=== PATIENT | male | born 1945 | race Hispanic/Latino ===

== ENCOUNTER 2017-12-04 05:04 | Observation (INO) | payer OTHER ==
[2017-12-01 14:01] LABS: BASOPHILS % 0.9 % (0.0-1.0); EOSINOPHILS # (AUTO) 0.1 (0.0-0.4); HEMATOCRIT 42.6 % (38.2-49.6); HEMOGLOBIN 14.1 g/dL (14.0-18.0); LYMPHOCYTES # (AUTO) 0.9 (1.0-3.2); LYMPHOCYTES % 19.2 % (18.0-39.1); MEAN CORPUSCULAR HEMOGLOBIN 30.5 pg (28-32); MEAN CORPUSCULAR HGB CONC 33.1 g/dL (31-35); MEAN CORPUSCULAR VOLUME 92.2 fL (81-99); MONOCYTES # (AUTO) 0.5 (0.2-0.8); MONOCYTES % 11.6 % (4.4-11.3); NEUTROPHILS % 65.1 % (38.7-80.0); PLATELET COUNT 164 x10e3/uL (140-360); RED BLOOD COUNT 4.62 x10e6/uL (4.3-5.7); RED CELL DISTRIBUTION WIDTH 12.8 % (11.7-14.4)
--- NOTE | 2017-12-01 14:26 | Diagnostic Imaging Report ---
EXAMINATION: CHEST 2 VIEWS INDICATION: Preop for right knee surgery COMPARISON: None FINDINGS: TUBES and LINES: None. LUNGS: Lungs are well inflated. Lungs are clear. There is no evidence of pneumonia or pulmonary edema. PLEURA: No pleural effusion or pneumothorax. HEART AND MEDIASTINUM: The cardiomediastinal silhouette is unremarkable. BONES AND SOFT TISSUES: No acute osseous lesion. Soft tissues are unremarkable. UPPER ABDOMEN: No free air under the diaphragm. IMPRESSION: No acute thoracic abnormality. Signed by: Dr. Shashank Arrieta M.D. on 12/01/2017 2:23 PM
[2017-12-01 14:28] LABS: ANION GAP 13.3 mmol/L (8-16); CALCIUM 9.2 mg/dL (8.4-10.2); CREATININE, SERUM 1.8 mg/dL (0.72-1.25); POTASSIUM 4.3 mmol/L (3.5-5.1)
[~2017-12-04] VITALS: Ht 172.7 cm; Wt 88.9 kg
[~2017-12-04 05:04] MED LIST: ATORVASTATIN CA20 MG PO; LISINOPRIL2.5 MG PO
[2017-12-04] MEDS ORDERED: DEXAMETHASONE SOD PHOS 10 MG/1 ML VIAL ONE (05:15)
[2017-12-04] MEDS ORDERED: CEFAZOLIN SOD 2 GM/D5W 50ML 50 ML IV ONE (05:15)
[2017-12-04] MEDS ORDERED: CELECOXIB 200 MG CAP ONE (05:15)
[2017-12-04] MEDS ORDERED: GABAPENTIN 300 MG CAP ONE (05:15)
[2017-12-04] MEDS ORDERED: ROPIVACAINE 246.25 MG, EPINEPHRINE HCL 1:1000 0.5 MG, CLONIDINE HCL 0.08 MG, KETOROLAC ... INJ ONE ×5 (06:00)
[2017-12-04] MEDS ORDERED: TRANEXAMIC ACID 1,000 MG/10 ML ML ONE (06:02)
[2017-12-04] MEDS ORDERED: MUPIROCIN 2% OINT 22 GM TUBE ONE (06:02)
[2017-12-04] MEDS ORDERED: BACITRACIN 50,000 UNIT VIAL ONE (06:03)
[2017-12-04] MEDS ORDERED: ONDANSETRON HCL INJ 2 MG/ML VIAL IV PRN (08:15)
[2017-12-04] MEDS ORDERED: ACETAMINOPHEN 650 MG SUPP PR PRN (08:15)
[2017-12-04] MEDS ORDERED: HYDROCODONE/APAP 7.5MG-325MG 1 EA TAB PO PRN (08:15)
[2017-12-04] MEDS ORDERED: DIPHENHYDRAMINE HCL INJ 50 MG/ML VIAL IM/IV PRN (08:15)
[2017-12-04] MEDS ORDERED: PROMETHAZINE HCL (IM) 25 MG/ML VIAL IM PRN (08:15)
[2017-12-04] MEDS ORDERED: KETOROLAC TROMETHAMINE 30 MG/ML VIAL IV PRN (08:15)
[2017-12-04] MEDS ORDERED: DOCUSATE SODIUM 100 MG CAP PO PRN (08:15)
[2017-12-04] MEDS ORDERED: HYDROCODONE/APAP 5MG-325MG TAB PO PRN (08:15)
[2017-12-04] MEDS: ASPIRIN 325 MG TAB PO SCH ×2 (09:00→18:00)
[2017-12-04] MEDS: CELECOXIB 200 MG CAP PO SCH ×2 (09:00→18:00)
[2017-12-04] MEDS ORDERED: CELECOXIB 100 MG CAP PO SCH (09:00)
--- NOTE | 2017-12-04 09:56 | Diagnostic Imaging Report ---
PROCEDURE: X-RAY RIGHT KNEE, ONE OR TWO VIEWS COMPARISON: None. INDICATIONS:POST OPERATIVE RIGHT KNEE SURGERY FINDINGS: See conclusion. CONCLUSION: Status post total right knee replacement with surrounding soft tissue swelling, air and fuentes consistent with recent surgery. No periprosthetic displaced fractures. Dictated by: Denis Oreilly M.D. on 12/04/2017 at 9:10 Electronically approved by: Denis Oreilly M.D. on 12/04/2017 at 9:10
[2017-12-04 12:01] VITALS: BP 120/66
[2017-12-04] MEDS: SODIUM CHLORIDE 0.9% 1000ML 1,000 ML IV SCH ×3 (12:55→22:49)
[2017-12-04] MEDS: ACETAMINOPHEN 1000 MG/100 ML IV SCH ×3 (12:55→23:59)
--- NOTE | 2017-12-04 13:04 | Operative Report ---
DATE OF PROCEDURE: December 04, 2017 DIET KITCHEN COOK: Duane Roy PA-C The patient was brought to the operating room for induction of anesthesia. Throughout this case, my PA's assistance was necessary for retraction of soft tissue and positioning of the extremity. This allows for efficient and technically successful execution of the operation and is considered medically necessary. PREOPERATIVE DIAGNOSIS: Osteoarthritis, right knee. POSTOPERATIVE DIAGNOSIS: Osteoarthritis, right knee. PROCEDURE: Right total knee arthroplasty. INDICATIONS: The patient is a 72-year-old gentleman who has end-stage arthritis of his right knee. He has failed conservative management and would like to proceed with a right total knee replacement. The risks and benefits have been discussed. He states he understands and wishes to proceed. DESCRIPTION OF PROCEDURE: The patient was brought to the operating room and placed under general anesthetic. He received prophylactic antibiotics, a regional block, and tranexamic acid in the holding area. His right lower extremity was prepped and draped in the sterile manner. A preoperative time out was performed. The extremity was exsanguinated and a proximal tourniquet was inflated to 300 mmHg. An anterior approach with a medial parapatellar arthrotomy was performed. Soft tissue releases were performed to bring the knee up into flexion with the patella everted. The cruciate ligaments, marginal osteophytes, and meniscal remnants were all removed. A [employer] posterior-stabilized knee system was used. An extramedullary cutting guide was used to resect the proximal tibia. The tibial baseplate was noted to be a size #7. The central fin punch was impacted and attention was directed towards the distal femur. An intramedullary cutting guide was used to resect the distal femur in 6 degrees of valgus and rotation referencing off of a combination of landmarks including [place]'s line, the epicondylar axis, and the posterior condyles. The femoral component was also a size #7. Anterior and posterior cuts were made. Trial reductions were performed. A 9-mm ultra congruent tibial insert provided appropriate soft tissue balancing in flexion and extension. The patella was resurfaced with a 35 mm x 9 mm patellar button. The thickness was checked before and after and was right at 24 mm. Patellar tracking was noted to be concentric. The trial implants were removed. The knee was thoroughly irrigated with a Pulsavac. A 100 mL premixed pericapsular VIRGILIO injection was placed into the surrounding soft tissue. The components were cemented into place using a single mix of PALACOS cement preloaded with antibiotics. Care was taken to remove all extravasated cement. The wound was further irrigated while the cement cured. The arthrotomy was closed with interrupted #1 Ethibond. The knee was put through flexion and extension to ensure a secure closure. The skin was closed with subcuticular Vicryl and fuentes. A sterile Aquacel bandage was applied. The patient was extubated and transported to the recovery room in stable condition. Blood loss was minimal. All needle and sponge counts were correct. Job#: [id number] ROSANNA
[2017-12-04 13:07] VITALS: BP 120/66
[2017-12-04] MEDS ORDERED: CEFAZOLIN SOD 1 GM/D5W 50ML 50 ML IV SCH (14:00)
[2017-12-04] MEDS: CEFAZOLIN SOD 1 GM VIAL IV SCH ×2 (14:47→22:49)
[2017-12-04] MEDS ORDERED: MIDAZOLAM HCL 2 MG/2 ML VIAL ONE (18:12)
[2017-12-04] MEDS ORDERED: FENTANYL CITRATE/PF 100MCG/2 ML INJ ONE (18:12)
[2017-12-04 18:13] VITALS: BP 117/60
[2017-12-04] MEDS ORDERED: ONDANSETRON HCL INJ 2 MG/ML VIAL ONE (18:25)
[2017-12-04] MEDS ORDERED: PROPOFOL IV EMULSION 10 MG/ML 20 ML VIAL ONE (18:25)
[2017-12-04] MEDS ORDERED: LIDOCAINE HCL 2% LOCAL INJ 5 ML SDV VIAL INJ ONE (18:25)
[2017-12-04] MEDS ORDERED: SEVOFLURANE INHAL SOLN 250 ML PEN BTL ONE (18:25)
[2017-12-04] MEDS ORDERED: ROPIVACAINE 0.5% 5 MG/ML 30 ML SDV ONE (19:26)
[2017-12-04] MEDS ORDERED: LIDOCAINE 2% /EPINEPHRINE 20 ML SDV INJ ONE (19:26)
[2017-12-04 20:00] VITALS: BP 106/59
[2017-12-04] MEDS ORDERED: ZOLPIDEM TARTRATE 5 MG TAB PO PRN (21:00)
[2017-12-04 22:09] VITALS: BP 106/59
[2017-12-05] VITALS: BP 89/54
[2017-12-05 04:00] VITALS: BP 106/55
[2017-12-05] MEDS: CEFAZOLIN SOD 1 GM VIAL IV SCH (05:33)
[2017-12-05] MEDS: ACETAMINOPHEN 1000 MG/100 ML IV SCH (05:33)
[2017-12-05 05:51] LABS: BASOPHILS % 0.1 % (0.0-1.0); EOSINOPHILS % 0.1 % (0.0-6.0); HEMATOCRIT 35.9 % (38.2-49.6); HEMOGLOBIN 11.8 g/dL (14.0-18.0); LYMPHOCYTES # (AUTO) 0.9 (1.0-3.2); LYMPHOCYTES % 9.4 % (18.0-39.1); MEAN CORPUSCULAR HEMOGLOBIN 30.3 pg (28-32); MEAN CORPUSCULAR HGB CONC 32.9 g/dL (31-35); MEAN CORPUSCULAR VOLUME 92.1 fL (81-99); MONOCYTES # (AUTO) 0.7 (0.2-0.8); MONOCYTES % 8.2 % (4.4-11.3); NEUTROPHILS # (AUTO) 7.4 (2.1-6.9); NEUTROPHILS % 81.9 % (38.7-80.0); PLATELET COUNT 135 x10e3/uL (140-360)
[2017-12-05 06:08] LABS: ANION GAP 9.9 mmol/L (8-16); BLOOD UREA NITROGEN 15 mg/dL (7-26); BUN/CREATININE RATIO 15 (6-25); CALCIUM 8.4 mg/dL (8.4-10.2); CARBON DIOXIDE 22 mmol/L (22-29); CHLORIDE 111 mmol/L (98-107); CREATININE, SERUM 1.01 mg/dL (0.72-1.25); EST GLOMERULAR FILTRATION RATE > 60 ML/MIN (60-); GLUCOSE 125 mg/dL (74-118); POTASSIUM 3.9 mmol/L (3.5-5.1); SODIUM 139 mmol/L (136-145)
[2017-12-05 07:05] VITALS: BP 101/50
[2017-12-05] MEDS ORDERED: ACETAMINOPHEN 1000 MG/100 ML IV PRN (08:15)
[2017-12-05 08:52] VITALS: BP 101/50
[2017-12-05] MEDS: ASPIRIN 325 MG TAB PO SCH (09:46)
[2017-12-05] MEDS: CELECOXIB 200 MG CAP PO SCH (09:46)
[2017-12-05] MEDS ORDERED: ASPIRIN325 MG PO (12:32)
[2017-12-05 13:31] VITALS: BP 115/56
== END 2017-12-05 14:20 | disposition home health service (06) ==
LOC: OR 05:04 → PACU V 08:12 → MED/SURG 11:42
PROVIDERS: ADMIT Specialist; ATTEND Specialist
DX: M17.11 Unilateral primary osteoarthritis, right knee (principal); E11.22 Type 2 diabetes mellitus with diabetic chronic kidney disease; N18.9 Chronic kidney disease, unspecified; E78.5 Hyperlipidemia, unspecified; Z83.3 Family history of diabetes mellitus; I12.9 Hypertensive chronic kidney disease with stage 1 through stage 4 chronic kidney disease, or unspecified chronic kidney disease
CPT/HCPCS: 27447; 36415 ×3; 71046; 73560; 80048 ×2; 82948 ×2; 85025 ×2; 86850; 86900; 86920; 97116; 97139; 97161; 97530 ×2; G0378 ×2; G8978; G8979; J0171; J0690 ×2; J1100; J1885; J2001 ×2; J2250; J2405; J2795; J7030